=== PATIENT | female | born 2000 | race African-American/Black ===

== ENCOUNTER 2023-12-09 13:49 | Outpatient (CLI) | payer BC, OTHER, SELFPAY ==
--- NOTE | ~2023-12-09 | XR_ITS ---
XR thoracic spine 3V 12/09/2023 14:46 Indication: Dorsalgia. Scoliosis. Procedure: 3 views thoracic spine Comparison: No prior studies for comparison. Findings: There is dextroscoliosis of the thoracic spine. Vertebral body heights are maintained. No f racture, subluxation or dislocation. Pedicles intact. Surrounding osseous structures within normal li mits. Impression: 1: Dextroscoliosis. Reviewed, dictated and finalized at location A. Impression: 1: Dextroscoliosis.
--- NOTE | ~2023-12-09 | XR_ITS ---
XR lumbar spine 2-3V 12/09/2023 14:47 Indication: History of scoliosis Procedure: 3 views lumbar spine Comparison: No prior studies for comparison. Findings: Vertebral body heights are maintained. No fracture or traumatic malalignment. Pedicles inta ct. Sacral foramen are symmetric. No evidence for spondylolisthesis. There is an IUD in the pelvis. T here is levoscoliosis of the thoracolumbar spine centered at L1-2. Impression: 1: Levoscoliosis. Reviewed, dictated and finalized at location A. Impression: 1: Levoscoliosis.
[2023-12-09 14:57] LABS: Basophils Percent Auto 0.2 % (0.2-1.2); Eosinophils Absolute Auto 0.1 K/mm3 (0-0.3); Eosinophils Percent Auto 2.2 % (0-4.4); Hematocrit 40.3 % (37.0-47.0); Hemoglobin 13.2 g/dL (12.0-15.0); Immature Granulocyte Absolute 0.01 K/mm3 (0.00-0.031); Immature Granulocyte Percent A 0.2 % (0-0.5); Lymphocytes Percent Auto 50.9 % (18.3-44.2); Mean Corpuscular HGB Conc 32.8 g/dl (32-36); Mean Corpuscular Hemoglobin 30.8 pg (26-34); Mean Corpuscular Volume 93.9 fl (80-100); Mean Platelet Volume 10.3 fl (7.4-10.4); Monocytes Absolute Auto 0.3 K/mm3 (0.1-0.6); Monocytes Percent Auto 5.3 % (2.6-8.5); Neutrophils Percent Auto 41.2 % (45.5-73.1); Platelet Count Result 296 k/mm3 (150-375); Red Blood Count 4.29 M/mm3 (4.2-5.4); Red Cell Distribution Width 12.3 % (11.5-14.5); White Blood Count 4.9 K/mm3 (4.5-10.0)
[2023-12-09 15:07] LABS: Alanine Aminotransferase 14 U/L (6-35); Albumin Level 4.6 g/dL (3.5-5.1); Alkaline Phosphatase 81 U/L (38-126); Anion Gap 5 mmol/L (8-16); Aspartate Amino Transferase 19 U/L (14-36); Bilirubin,Total 0.7 mg/dL (0.2-1.3); Blood Urea Nitrogen 9 mg/dL (7-17); Calcium 9.8 mg/dL (8.4-10.2); Carbon Dioxide 26 mmol/L (22-30); Chloride 106 mmol/L (98-107); Estimated Glomerular Filt Rate > 60; Glucose 92 mg/dL (65-110); Potassium 3.6 mmol/L (3.4-5.0); Sodium 137 mmol/L (137-145)
[2023-12-09 17:03] LABS: Hemoglobin A1C 5.5 % (<5.7)
[2023-12-09 17:04] LABS: Vitamin D 25 Hydroxy 37.6 ng/mL
[2023-12-13 00:51] LABS: Tissue Transglutaminase IgA Ab <1.0 U/mL (<15.0)
[2023-12-15 08:05] LABS: Tissue Transglutaminase IgG Ab <1.0 U/mL (<15.0)
== END 2023-12-09 13:50 | disposition home or self-care (01) ==
PROVIDERS: PCP Nurse Practitioner Family; Visit Provider Nurse Practitioner Family
DX: M41.84 Other forms of scoliosis, thoracic region (principal); M41.85 Other forms of scoliosis, thoracolumbar region; E55.9 Vitamin D deficiency, unspecified; R53.83 Other fatigue; R63.4 Abnormal weight loss; F32.A Depression, unspecified; F41.9 Anxiety disorder, unspecified; K58.9 Irritable bowel syndrome, unspecified; Z13.228 Encounter for screening for other metabolic disorders; Z13.1 Encounter for screening for diabetes mellitus; Z13.29 Encounter for screening for other suspected endocrine disorder; Z13.0 Encounter for screening for diseases of the blood and blood-forming organs and certain disorders involving the immune mechanism
CPT/HCPCS: 36415; 72072; 72100; 80053; 82306; 83036; 84443; 85025; 86364

== ENCOUNTER 2023-12-12 13:44 | Outpatient (CLI) | payer BC, OTHER, SELFPAY ==
[2023-12-18 21:06] LABS: Calprotectin, Stool 59 mcg/g
== END 2023-12-12 13:45 | disposition home or self-care (01) ==
LOC: ANHLAB 13:46
PROVIDERS: PCP Nurse Practitioner Family; Visit Provider Nurse Practitioner Family
DX: K58.9 Irritable bowel syndrome, unspecified (principal)
CPT/HCPCS: 83993

== ENCOUNTER 2024-01-31 12:40 | Outpatient (CLI) | payer BC, SELFPAY ==
--- NOTE | ~2024-01-31 | XR_ITS ---
EXAM: XR abdomen/kub 1V DATE: 01/31/2024 12:58 HISTORY: CONSTIPATION, BLOATING, SYMPTOMS FOR YEARS . COMPARISON: None available. FINDINGS: Clear lung bases. Normal bowel gas pattern. No organomegaly. No abnormal abdominal calcifi cation. 6 apparent nonrib-bearing lumbar-type vertebral bodies. Otherwise the regional bones and soft tissues normal for age. IUD overlying the midline pelvis. IMPRESSION: Unremarkable abdominal radiograph findings. Reviewed, dictated and finalized at location K.
== END 2024-01-31 12:41 | disposition home or self-care (01) ==
LOC: ANHIMG 12:41
PROVIDERS: PCP Nurse Practitioner Family; Visit Provider Nurse Practitioner Family
DX: R19.8 Other specified symptoms and signs involving the digestive system and abdomen (principal); K59.00 Constipation, unspecified
CPT/HCPCS: 74018

== ENCOUNTER 2024-02-03 14:41 | Outpatient (CLI) | payer BC, SELFPAY ==
[2024-02-11 20:29] LABS: Calprotectin, Stool 117 mcg/g
== END 2024-02-03 14:42 | disposition home or self-care (01) ==
LOC: ANHLAB 14:42
PROVIDERS: PCP Nurse Practitioner Family; Visit Provider Nurse Practitioner Family
DX: K58.2 Mixed irritable bowel syndrome (principal)
CPT/HCPCS: 83993

== ENCOUNTER 2024-05-22 13:11 | Outpatient (CLI) | payer BC, SELFPAY ==
[2024-05-24 16:19] LABS: H pylori, Urea Breath NOT DETECTED (NOT DETECTED)
== END 2024-05-22 13:12 | disposition home or self-care (01) ==
LOC: ANHLAB 13:14
PROVIDERS: PCP Nurse Practitioner Family; Visit Provider Nurse Practitioner Family
DX: R19.8 Other specified symptoms and signs involving the digestive system and abdomen (principal)
CPT/HCPCS: 83013

== ENCOUNTER 2024-06-05 00:30 | Day surgery (SDC) | payer BC, SELFPAY ==
[2024-04-13 09:19] VITALS: BMI 20.1
--- NOTE | 2024-04-30 08:48 | SUR.PREOP ---
Patient called this am complaining of headache, sore throat, sinus congestion, and upset stomach. Patient said she has not tested for covid but was thinking she needed to reschedule. Patient rescheduled to Jun 05 at 1230.
[2024-05-15 14:28] VITALS: BMI 20.1
--- NOTE | 2024-06-05 08:47 | WPDANESEPPF ---
Anes - Initial Pre Proc Eval Procedure: Operation Date: 06/05/24 12:30 Proposed Procedures p Colonoscopy - Arnulfo Bright MD Date/Time: 06/05/24 08:47 Surgeon: Arnulfo Bright MD Pre Op Diagnosis: Abdominal pain, IBS W/O diarrhea, Patient Data Age: 24 Gender: F Height: 1.73 m Weight: 60 kg Allergies Allergy/AdvReac Type Severity Reaction Status Date / Time lactose AdvReac Unknown Verified 05/15/24 14:27 Home Medications Medication Instructions Recorded Confirmed Type levonorgestrel 14 mcg/24 hr (up to 1 device intrauterine ONCE 07/20/23 06/05/24 History 3 yrs) 13.5 mg intrauterine device (Yamilet) propranolol 20 mg tablet 20 mg PO Q6H PRN anxiety #30 tabs 12/09/23 06/05/24 Rx cetirizine 10 mg tablet 10 mg PO DAILY PRN Allergy Symptoms 04/13/24 06/05/24 History Xhance 93 mcg/actuation breath 1 spray intranasal Q12H #16 mL 05/04/24 06/05/24 Rx activated aerosol (fluticasone propionate) bupropion HCl 150 mg 24 hr tablet, 150 mg PO QAM #30 tabs 05/04/24 06/05/24 Rx extended release (Wellbutrin XL) ondansetron 8 mg disintegrating 8 mg PO Q6H PRN nausea and 05/10/24 06/05/24 Rx tablet vomiting #10 tabs naproxen sodium 550 mg tablet 550 mg PO ONCE PRN headache #14 05/29/24 06/05/24 Rx tabs sumatriptan succinate 100 mg tablet See Rx Instructions PO .COMPLEX 05/29/24 06/05/24 Rx #28 tabs topiramate 25 mg capsule,extended 25 mg PO DAILY #30 caps 05/29/24 06/05/24 Rx release 24 hr Patient hx anesthesia problems: none Family hx anesthesia problems: none Results Review: All pre-operative results and documents have been reviewed as part of the pre-operative evaluation. [facility] Past Medical History Medical History (Updated 06/05/24 @ 08:47 by Manuelito Vanegas DO) Abdominal pain Allergies Anxiety and depression Borborygmi Constipation Elevated fecal calprotectin Encounter for IUD insertion 06/09/2022 yamilet Heartburn Family History Family History Mother Scleredema Anxiety Depression Father Hypertension Alcoholism Depression Anxiety Sibling Anxiety Depression Social History Social History Smoking status: Never smoker Alcohol intake: current Drinks per week: 1 Alcohol use details: Socially Substance use: never Substance use type: does not use Current Housing: Decline to Answer Concerned About Future Housing: Decline to Answer Difficulty Paying Gas/Electric Bills: Decline to Answer Difficulty Paying for Meds: Decline to Answer Currently Unemployed: Decline to Answer Education: Decline to Answer Difficulty w/ Childcare or Family Care: Decline to Answer Living arrangements: with family Additional living arrangements comments: single with sister Occupation/Education: occupation Gender identity (if verbalized by the patient): Female Sexual Orientation (if Verbalized by the Patient): Straight or Heterosexual Spiritual care concerns: No Anes - Eval Final PreProcedure Day of Procedure 06/05/24 08:47 Patient weight: normal Heart: regular rate and rhythm Lungs: clear to auscultation and normal air movement Airway: Mallampati scale class II Neurological: alert and oriented Last oral intake: >/= 8 hours ASA classification: II Emergent: no Anesthetic plan: proceed Anesthesia type and monitoring: general GIVS and standard monitoring Results Review: All pre-operative results and documents have been reviewed as part of the pre-operative evaluation. Informed Consent: The patient's anesthetic plan and its attendant risks and benefits were discussed with the patient/family/POA. Questions were solicited and answers provided to the satisfaction of the patient/family/POA.
[2024-06-05 09:39] VITALS: BP 102/69; PULSE 103; RESP 20; TEMP 37; O2SAT 100
[2024-06-05] MEDS: LACTATED RINGERS 1,000 ML 150 ML IV CONT (09:56)
--- NOTE | 2024-06-05 10:17 | PM.HPGS ---
History of Present Illness History of Present Illness Consent: Risks, benefits, and alternatives have been discussed and questions answered. Patient agrees to proceed with procedure. Chief complaint: Abdominal pain, IBS W/O diarrhea, Narrative: Sanam Epperson is a 24 year old female with chronic abdominal pain and constipation, here for first colonoscopy Review of Systems Review of Systems: All systems reviewed & are unremarkable except as noted in HPI and below PMFSH Past Medical History Medical History (Updated 06/05/24 @ 08:47 by Manuelito Vanegas, DO) Abdominal pain Allergies Anxiety and depression Borborygmi Constipation Elevated fecal calprotectin Encounter for IUD insertion 06/09/2022 yamilet Heartburn Family History Family History Mother Scleredema Anxiety Depression Father Hypertension Alcoholism Depression Anxiety Sibling Anxiety Depression Social History Social History Smoking status: Never smoker Alcohol intake: current Drinks per week: 1 Alcohol use details: Socially Substance use: never Substance use type: does not use Current Housing: Decline to Answer Concerned About Future Housing: Decline to Answer Difficulty Paying Gas/Electric Bills: Decline to Answer Difficulty Paying for Meds: Decline to Answer Currently Unemployed: Decline to Answer Education: Decline to Answer Difficulty w/ Childcare or Family Care: Decline to Answer Living arrangements: with family Additional living arrangements comments: single with sister Occupation/Education: occupation Gender identity (if verbalized by the patient): Female Sexual Orientation (if Verbalized by the Patient): Straight or Heterosexual Spiritual care concerns: No Meds Home Medications and Allergies Home Medications Medication Instructions Recorded Confirmed Type levonorgestrel 14 mcg/24 hr (up to 1 device intrauterine ONCE 07/20/23 06/05/24 History 3 yrs) 13.5 mg intrauterine device (Yamilet) propranolol 20 mg tablet 20 mg PO Q6H PRN anxiety #30 tabs 12/09/23 06/05/24 Rx cetirizine 10 mg tablet 10 mg PO DAILY PRN Allergy Symptoms 04/13/24 06/05/24 History Xhance 93 mcg/actuation breath 1 spray intranasal Q12H #16 mL 05/04/24 06/05/24 Rx activated aerosol (fluticasone propionate) bupropion HCl 150 mg 24 hr tablet, 150 mg PO QAM #30 tabs 05/04/24 06/05/24 Rx extended release (Wellbutrin XL) ondansetron 8 mg disintegrating 8 mg PO Q6H PRN nausea and 05/10/24 06/05/24 Rx tablet vomiting #10 tabs naproxen sodium 550 mg tablet 550 mg PO ONCE PRN headache #14 05/29/24 06/05/24 Rx tabs sumatriptan succinate 100 mg tablet See Rx Instructions PO .COMPLEX 05/29/24 06/05/24 Rx #28 tabs topiramate 25 mg capsule,extended 25 mg PO DAILY #30 caps 05/29/24 06/05/24 Rx release 24 hr Allergies Allergy/AdvReac Type Severity Reaction Status Date / Time lactose AdvReac Unknown Verified 05/15/24 14:27 Vital Signs Vital Signs - 24 hr 06/05/24 09:39 Temperature 98.6 F Pulse Rate 103 H Respiratory Rate 20 Blood Pressure 102/69 Pulse Oximetry 100 Oxygen Delivery Room Air Exam Const: General: comfortable and no acute distress HENMT: Face/Nose/Sinus: Normal nares present Eyes: General: appearance normal, both eyes and all related structures Neck: Neck: no JVD Resp: Auscultation: clear to auscultation bilaterally Cardio: Rate: regular rate Rhythm: regular rhythm GI: Inspection: non-distended GI Palp: Yes Soft to palpation Skin: General skin exam: normal color Neuro: General: gait normal Speech: normal speech Extrem: General: normal to inspection Psych: Mental Status: mental status grossly normal Assessment and Plan Assessment and plan (1) Constipation: Code(s): K59.00 - Constipation, unspecified Status: Acute Assess
[2024-06-05 10:33] VITALS: BP 90/56; PULSE 89; RESP 23; O2SAT 100
[2024-06-05 10:43] VITALS: BP 86/56; PULSE 86; RESP 22; O2SAT 100
[2024-06-05 10:53] VITALS: BP 96/59; PULSE 86; RESP 23; O2SAT 100
== END 2024-06-05 11:05 | disposition home or self-care (01) ==
PROVIDERS: PCP Nurse Practitioner Family; Visit Provider Internal Medicine Gastroenterology
PROC: 0DJD8ZZ Inspection of Lower Intestinal Tract, Via Natural or Artificial Opening Endoscopic (ICD-10-PCS; CPT 45378; principal; 2024-06-05 12:30)
DX: R10.9 Unspecified abdominal pain (principal); F41.8 Other specified anxiety disorders; Z79.1 Long term (current) use of non-steroidal anti-inflammatories (NSAID)
CPT/HCPCS: 45378; J2704; J7120

== ENCOUNTER 2024-06-07 13:05 | Outpatient (CLI) | payer BC, SELFPAY ==
--- NOTE | ~2024-06-07 | MR_ITS ---
EXAMINATION: MR brain/brain stem wo con DATE: 06/07/2024 13:42 INDICATION: Headache, unspecified. TECHNIQUE: Magnetic resonance imaging (MRI) of the brain and brainstem was performed without intraven ous contrast. COMPARISON: None. FINDINGS: There is no intracranial hemorrhage, acute infarction, or abnormal intracranial mass lesion . The ventricles are normal in size. There is mild mucosal thickening in the paranasal sinuses. The o rbits are normal. The mastoid air cells are normal. IMPRESSION: 1. Normal brain. Reviewed, dictated and finalized at location A. IMPRESSION: 1. Normal brain.
== END 2024-06-07 13:06 | disposition home or self-care (01) ==
LOC: MICIMG 13:07
PROVIDERS: PCP Nurse Practitioner Family; Visit Provider Nurse Practitioner Family
DX: R51.9 Headache, unspecified (principal)
CPT/HCPCS: 70551

== ENCOUNTER 2024-06-25 07:58 | Outpatient (CLI) | payer BC, SELFPAY ==
[2024-07-17 13:20] VITALS: BMI 20.5
--- NOTE | 2024-07-17 13:20 | WPDSLEEPSTUD ---
Sleep Study Date of Study: 06/25/24 Ordering Provider: Susan Castro APRN Interpreting Physician: Deysi Murdock DO Sleep Study Type: Polysomnogram Height: 1.73 m Weight: 61.235 kg Body Mass Index: 20.5 Neck Circumference (inches): 13 [place]: 18 Reason for Sleep Study Unrefreshing sleep, sleeping too much Sleep History The patient is a 24-year-old female that had a sleep study ordered by her primary care for evaluation of sleep apnea. The patient denies awakening from sleep short of breath. She occasionally awakens at night with heartburn, belching or cough. She denies snoring. She constantly has trouble sleeping when she has a cold. She denies waking up gasping for air throughout the night. She denies having breathing problems at night observed by herself or others. She constantly sweats excessively at night. She rarely has heart palpitations or irregular heartbeats during the night. He constantly falls asleep during the day but never while driving. She denies sleep paralysis and cataplexy. She constantly has trouble at school or work due to sleepiness. She occasionally experiences vivid dreamlike scenes upon awakening or falling asleep. She denies feeling afraid of going to sleep. She occasionally has nightmares. she occasionally remembers her dreams. She frequently has thoughts racing through her mind. She occasionally feels sad or depressed. She constantly has anxiety. She constantly has muscular tension. She occasionally notices parts of her body jerk. She occasionally kicks during the night. She occasionally has crawling and aching feelings in her legs and occasionally has leg pain during the night. She rarely grinds her teeth during sleep and rarely awakens with morning jaw pain. She is occasionally bothered by pain during the day but rarely awakened by pain during the night. She frequently wakes up feeling stiff in the morning. She occasionally wakes up with sore or achy muscles. She constantly wakes up with pain in the neck, spine in other joints. She does to bed at 10:30 p.m. on weekdays and at 2:30 a.m. on the weekends. It takes her 45-60 minutes to fall asleep. She wakes up twice throughout the night to urinate and is able to fall back asleep within 15 minutes. She wakes up at 6:15 a.m. on weekdays and at 10:30 a.m. on the weekends. She typically gets 6-7 hours of sleep per night. She will stay in bed for 45 minutes after waking up in the morning. She currently lives with her sister. She denies consuming any caffeinated beverages within 2 hours of bedtime. She denies engaging in physical exercise before bedtime. She will plan her phone before falling asleep. She will take naps in afternoon or the evening but they are not refreshing. She denies consuming any caffeinated beverages throughout the day. She denies tobacco, alcohol and recreational drug use. [facility] Past Medical History Medical History Abdominal pain Allergies Anxiety and depression Borborygmi Constipation Elevated fecal calprotectin Encounter for IUD insertion 06/09/2022 eliseo Heartburn Family History Family History Mother Scleredema Anxiety Depression Father Hypertension Alcoholism Depression Anxiety Sibling Anxiety Depression Social History Social History Smoking status: Never smoker Alcohol intake: current Drinks per week: 1 Alcohol use details: Socially Substance use: never Substance use type: does not use Current Housing: Decline to Answer Concerned About Future Housing: Decline to Answer Difficulty Paying Gas/Electric Bills: Decline to Answer Difficulty Paying for Meds: Decline to Answer Currently Unemployed: Decline to Answer Education: Decline to Answer Difficulty w/ Childcare or Family Care: Decline to An
== END 2024-06-26 07:42 | disposition home or self-care (01) ==
PROVIDERS: PCP Nurse Practitioner Family; Visit Provider Nurse Practitioner Family
DX: R40.0 Somnolence (principal); G25.81 Restless legs syndrome
CPT/HCPCS: 95810